=== PATIENT | male | born 1980 | race Hispanic/Latino ===

== ENCOUNTER 2019-06-28 16:35 | Outpatient (RCR) | payer BC | END 2019-07-12 | LOC: PT 16:35 | PROVIDERS: ATTEND Specialist | DX: S33.5XXA Sprain of ligaments of lumbar spine, initial encounter (principal); M62.81 Muscle weakness (generalized); M53.86 Other specified dorsopathies, lumbar region ==

== ENCOUNTER 2019-08-05 16:00 | Outpatient (RCR) | payer BC | END 2019-08-12 | LOC: PT 16:00 | PROVIDERS: ATTEND Specialist | DX: S33.5XXD Sprain of ligaments of lumbar spine, subsequent encounter (principal); M53.86 Other specified dorsopathies, lumbar region; M62.81 Muscle weakness (generalized) ==